=== PATIENT | male | born 1975 | race Hispanic/Latino ===

== ENCOUNTER 2025-08-25 09:44 | Outpatient (CLI) | payer BC | END 2025-08-25 09:45 | disposition home or self-care (01) | LOC: CSHSLEEP 09:44 | PROVIDERS: ATTEND Family Medicine | DX: G47.33 Obstructive sleep apnea (adult) (pediatric) (principal); R06.83 Snoring; I10 Essential (primary) hypertension | CPT/HCPCS: 95810 ==